=== PATIENT | male | born 1980 | race Caucasian/White ===

== ENCOUNTER 2018-01-25 20:08 | Inpatient (IN) | payer SELFPAY ==
[2018-01-25 20:45] LABS: #Basophils 0.1 thou/uL (0.0-0.2); #Eosinphils 0.1 thou/uL (0.0-0.7); #Lymphocytes 2.8 thou/uL (1.20-3.40); #Monocytes 1.3 thou/uL (0.11-0.59); #Neutrophils 6.6 thou/uL (1.40-6.50); %Basophils 0.8 % (0.0-1.0); %Eosinophils 0.8 % (0.0-10.0); %Lymphocytes 25.8 % (21.0-51.0); %Monocytes 12.2 % (0.0-10.0); %Neutrophils 60.3 % (42.0-75.0); Hemoglobin 13.4 g/dL (14.0-18.0); Mean Corpuscular HGB CONC 35.1 g/dL (32.0-36.0); Mean Corpuscular Volume 93.9 fL (78.0-98.0); Mean Platelet Volume 7.9 fL (7.4-10.4); Platelet Count 337 thou/uL (130-400); RBC Distribution Width 11.6 % (11.5-14.5); Red Blood Cell (RBC) Count 4.07 mill/uL (4.70-6.10); White Blood Cell (WBC) Count 10.9 thou/uL (4.8-10.8)
[2018-01-25 20:51] LABS: Base Excess-Venous -1.1 mmol/L (0 (+/- 2.5)); Bicarbonate (HCO3v) 24.4 mmol/L (1.0-85.0); CO2 Tension (PvCO2) 43.1 mmHg (41.0-51.0); Calcium, Ionized 1.15 mmol/L (1.12-1.32); Hemoglobin - Calc 13.3 g/dL (12.0-18.0); O2 Tension (PvO2) 23.5 mmHg (35.0-45.0); Potassium 3.6 mmol/L (3.4-4.7); T. Carbon Dioxide 25.8 mmol/L (1.0-85.0); pH (Venous) 7.362 (7.35-7.45)
[2018-01-25 21:06] LABS: ALT (SGPT) 18 U/L (8-55); AST (SGOT) 13 U/L (5-34); Albumin 3.8 g/dL (3.5-5.0); Alkaline Phosphatase 142 U/L (40-150); Anion Gap 17 mmol/L (10-20); BUN (Urea Nitrogen) 11 mg/dL (8.9-20.6); Bilirubin, Total 0.4 mg/dL (0.2-1.2); Calc. Creatinine Clearance 0 mL/min (70-130); Calcium 8.5 mg/dL (7.8-10.44); Carbon Dioxide 19 mmol/L (22-29); Chloride 105 mmol/L (98-107); Estimated GFR-MDRD Greater than 90; Globulin 2.4 g/dL (2.4-3.5); Glucose 189 mg/dL (70-105); Potassium 3.8 mmol/L (3.5-5.1); Protein, Total 6.2 g/dL (6.0-8.3); Sodium 137 mmol/L (136-145)
[2018-01-25] MEDS ORDERED: Morphine 4 MG/ML VIAL ONE (21:25)
[2018-01-25] MEDS ORDERED: Acetaminophen 325 MG TAB PO PRN (23:03)
[2018-01-25] MEDS ORDERED: Ondansetron ODT 4 MG TAB SL PRN (23:03)
[2018-01-25] MEDS ORDERED: Ondansetron PF 4 MG/2 ML Vial IVP PRN (23:03)
[2018-01-25] MEDS ORDERED: NPH, Human Insulin Isophane 300 UNIT/3 ML VIAL SC SCH (23:15)
[2018-01-25] MEDS ORDERED: Dextrose 5% in Water 1,000 ML IV PRN (23:55)
[2018-01-25] MEDS ORDERED: Dextrose 50% Abboject 50 ML SYRINGE SLOW IVP PRN (23:55)
[2018-01-26] MEDS: Clindamycin/D5W 900 MG in Premix Bag 1 BAG IVPB SCH ×4 (00:01→20:49)
[2018-01-26] MEDS: Sodium Chloride 0.9% 1,000 ML IV SCH ×2 (00:02→05:08)
[2018-01-26 00:25] VITALS: BMI 23.8
[2018-01-26] MEDS ORDERED: traMADol HCl 50 MG TAB PO SCH (00:30)
[2018-01-26] MEDS: Morphine 2 MG/ML SYRINGE SLOW IVP PRN ×7 (00:42→20:52)
[2018-01-26] MEDS: HumaLOG 300 UNITS/3 ML VIAL SC PRN (04:45)
[2018-01-26] MEDS: traMADol HCl 50 MG TAB PO SCH ×4 (05:09→23:22)
[2018-01-26] MEDS ORDERED: Acetaminophen 500 MG TAB PO PRN (11:16)
[2018-01-26] MEDS ORDERED: Zolpidem Tartrate 5 MG TAB PO PRN (11:16)
[2018-01-26] MEDS ORDERED: Cepastat Lozenges 1 LOZ PO PRN (11:16)
[2018-01-26] MEDS ORDERED: Ondansetron PF 4 MG/2 ML Vial IVP PRN (11:16)
[2018-01-26] MEDS ORDERED: Bisacodyl 5 MG TAB PO PRN (11:16)
[2018-01-26] MEDS ORDERED: Ondansetron ODT 4 MG TAB PO PRN (11:16)
[2018-01-26] MEDS ORDERED: hydrALAZINE 20 MG/ML VIAL SLOW IVP PRN (11:16)
[2018-01-26] MEDS ORDERED: Ibuprofen 200 MG TAB PO PRN (11:16)
[2018-01-26] MEDS ORDERED: Sodium Chloride 0.65% Nasal 44 ML BOT EA NARE PRN (11:16)
[2018-01-26] MEDS ORDERED: Senokot S 8.6-50 MG TAB PO PRN (11:16)
[2018-01-26] MEDS ORDERED: Artificial Tears 18 DROP/0.9 ML EA EYE PRN (11:16)
[2018-01-26] MEDS ORDERED: Eucerin (Mineral Oil/Petrolatum,White) 30 gm Jar TOP PRN (11:16)
[2018-01-26] MEDS ORDERED: Diabetic Tussin 200 MG/10 ML UDCUP PO PRN (11:16)
[2018-01-26] MEDS ORDERED: Loratadine 10 MG TAB PO PRN (11:16)
[2018-01-26] MEDS ORDERED: Loperamide HCl 2 MG CAP PO PRN (11:16)
[2018-01-26] MEDS ORDERED: HumaLOG 300 UNITS/3 ML VIAL SC PRN (11:17)
[2018-01-26] MEDS: HYDROcodone/Acetaminophen 5/325 mg Tablet PO PRN ×2 (11:45→19:47)
[2018-01-26] MEDS ORDERED: Ketorolac Tromethamine 30 MG/ML VIAL IVP PRN (13:04)
--- NOTE | 2018-01-26 13:32 | HP ---
PRIMARY CARE PHYSICIAN: City call admission. REASON FOR ADMISSION: Transfer from [facility] for right-sided facial cellulitis a nd hyperglycemia. HISTORY OF PRESENT ILLNESS: A 37-year-old male who has underlying history of diabetes who presented to emergency room for swelling over the right side of face for the last 3 days. The patient reports that initially he was thinking sinus problem as he was having nasal discharge and he was feeling fore ign body sensation in his nose, but subsequently the patient's swelling on the right side of face had gotten worse. It was getting more erythematous, tender and that is why he decided to go to local em ergency room at [place]. At [facility] Emergency Room, the patient was hemodynamically stable, but he had mild hyperg lycemia associated with mild DKA. He was given IV fluid, insulin drip and he had routine blood test done, which was also consistent with mild DKA. The patient was transferred to our hospital for highe r level of care, before coming to the hospital the patient had CT face with contrast which showed rig ht cheek and periorbital soft tissue cellulitis with infected right mandibular third molar with peria pical abscess. The patient was started on clindamycin at [facility] which was cont inued in our emergency room. When he was transferred to our emergency room, insulin drip was discontinued as DKA was resolved. Hurley bsequently, he was admitted to medical floor. I saw this patient this morning and the patient was feeling a little bit better. He still has swelli ng on his face. The patient reports that whenever he tried to sleep on the right side of the face, h is swelling gets worse. He feels throbbing sensation. He does report that he has poor dentition, bu t he has not seen any dentist in the past. The patient reports that he is taking his insulin as pres cribed. Currently, his blood sugar is out of control, but after giving him insulin, his blood sugars started improving. His WBC count was elevated at [facility] [facility] and currently has improv ement. He denies any UTI symptoms. He denies any constipation, diarrhea, melena, hematochezia. He denies a ny similar problem in the past. PAST MEDICAL HISTORY: Diabetes type 1 on insulin, history of contusion and laceration. PAST SURGICAL HISTORY: Reviewed and negative. PAST PSYCHIATRIC HISTORY: Reviewed and negative. SOCIAL HISTORY: The patient is smoking about 1 pack per day. He denies any other illicit drug abuse , but he drinks alcohol socially. He also chews tobacco. FAMILY HISTORY: No family history of coronary artery disease, stroke or cancer. ALLERGIES: PENICILLIN. CURRENT HOME MEDICATIONS: Humalog 8 units subcu b.i.d., Humulin N 28 units subcu daily and 24 units subcu at bedtime. EMERGENCY ROOM COURSE: The patient was given IV fluid as well as clindamycin and insulin drip at [facility]. The patient was given morphine 4 mg in our emergency room as well as IV f luid. REVIEW OF SYSTEMS: The following complete review of systems was negative, unless otherwise mentioned in the HPI or below: Constitutional: Weight loss or gain, abil ity to conduct usual activities. Skin: Rash, itching. Eyes: Double vision, pain. ENT/Mouth: Nos e bleeding, neck stiffness, pain, tenderness. Cardiovascular: Palpitations, dyspnea on exertion, or thopnea. Respiratory: Shortness of breath, wheezing, cough, hemoptysis, fever or night sweats. Gas trointestinal: Poor appetite, abdominal pain, heartburn, nausea, vomiting, constipation, or diarrhea . Genitourinary: Urgency, frequency, dysuria, nocturia. Musculoskeletal: Pain, swelling. Neurolo gic/Psychiatric: Anxiety, depression. Allergy/Immunologic: Skin rash, bleeding tendency. Please see my HPI for pertinent positive and negative. All other review of systems reviewed and nega tive except as mentioned in the HPI. PHYSICAL EXAMINATION: VITAL SIGNS: Currently, blood pressure 152/91, pulse 86, respiratory rate 16, temperature 98.8, satu ration 99% on room air, weight 73.03 kilograms. GENERAL: The patient is currently alert, awake, no obvious acute distress. HEENT: Normocephalic, atraumatic. Eyes: Pupils round, reactive to light. Extraocular muscle intac t. ENT: Oropharynx within normal limits. Moist mucous membranes, no oral lesion. No pharyngeal erythe ma, no exudate. Face, right-sided face is swollen, tender, and erythematous. NECK: Supple, no JVD, no meningeal signs of irritation. LUNGS: Clear to auscultation without any rhonchi or rales. CARDIAC: S1, S2 regular without any murmur. ABDOMEN: Soft and bowel sounds present, nontender, nondistended. No organomegaly, no mass, no supra pubic tenderness. BACK: Unremarkable, no CVA tenderness. EXTREMITIES: Upper extremity passive movement of all joints are normal. Lower extremities: No abdias a. Good distal pulsation. SKIN: No skin rash other than facial cellulitis. PSYCHIATRIC: Normal affect. NEUROLOGIC: Nonfocal examination. The patient moves all 4 limbs. Plantar bilateral flexor. SIGNIFICANT LABORATORY DATA: CT face with contrast showed right cheek and right periorbital soft tis sues cellulitis, infected right mandibular third molar with periapical abscess. There is also extens david disease of the left mandibular third, second and first molar with a periapical lucency consistent with fatty or dental disease, likely abscess formation. CBC: WBC 12.5, hemoglobin 15.1, platelet 3 33. Sodium 133, potassium 4.1, chloride 95, carbon dioxide 15, anion gap 27, glucose 463, BUN 19, cr eatinine 1.2, calcium 8.8, albumin 4.4, alkaline phosphatase 178, AST 23, ALT 27. Beta hydroxybutyra te 9.18. Venous pH 7.26. Currently, hemoglobin 13.4, WBC 10.9, platelet 337. Beta hydroxybutyrate 2.0, creatinine 0.86. LFT normal. VBG normal. ASSESSMENT AND PLAN: 1. Mild diabetic ketoacidosis, resolved with the insulin therapy and IV fluid. We have restarted hi s home medication including Humulin N 28 units subcu daily and 24 units at bedtime along with insulin as per sliding scale per protocol. Diabetic diet will be given. We will repeat labs tomorrow along with ketones, magnesium and phosphorus. 2. Right-sided facial cellulitis with periodontal disease with abscess. Oral surgeon will be consul hai. Clindamycin 900 mg IV q.8 hours., Florastor 250 mg p.o. daily. Pain control with morphine p.r. n. basis, Toradol 15 mg IV q.6 hourly p.r.n. for pain. 3. Diabetes type 1, on insulin. We will check hemoglobin A1c. We are going to adjust insulin thera py while in hospital. 4. Deep venous thrombosis prophylaxis. Lovenox 40 mg subcu daily. 5. Gastrointestinal prophylaxis, Pepcid 20 mg p.o. b.i.d. 6. Code status: The patient is FULL CODE. The patient does not have any surrogate decision maker. Disposition plan based on clinical course. We are expecting the patient's stay in hospital more than 2 midnights. Plan of care discussed with the patient in detail.
[2018-01-26] MEDS ORDERED: Lidocaine 1% w/Epinephrine 1:100K 20 ML VIAL ONE (17:52)
[2018-01-26] MEDS ORDERED: NPH, Human Insulin Isophane 300 UNIT/3 ML VIAL SC SCH (21:00)
[2018-01-27] MEDS: traMADol HCl 50 MG TAB PO SCH ×4 (00:52→17:44)
--- NOTE | 2018-01-27 00:53 | CON ---
DATE OF CONSULTATION: 01/26/2018 HISTORY OF PRESENT ILLNESS: This is a 37-year-old male with approximately 3- day history of worsening facial swelling. The patient presented to [facility], where a CT of the face was performed revealing right facial swelling and questionable dental abscess. The patient was also found to be in DKA. He was transferred to [facility] for further evaluation and care. Oral Surgery was consulted for concerns for the facial cellulitis and possible odontogenic source. PAST MEDICAL HISTORY: Type 1 diabetes. PAST SURGICAL HISTORY: None. ALLERGIES: PENICILLIN. SOCIAL HISTORY: A 1-pack per day smoker. REVIEW OF SYSTEMS: The patient reports generalized right facial tenderness to palpation. No intraoral pain, tenderness when chewing. Teeth have been asymptomatic over the past couple of weeks, reports no difficulty swallowing or speaking. PHYSICAL EXAMINATION: VSS AF GENERAL: Awake, alert, oriented x4, no acute distress. The patient sitting in bed watching TV. HEENT: Pupils equal, round and reactive to light. Extraocular movements are intact. Nares patent bilaterally. No epistaxis. Patent airflow in bilateral nares. Ears within normal limits. Slight facial edema overlying the right side of the patient's upper lip and right facial infraorbital region, mildly tender to palpation. No erythema appreciated. The patient's mandibular range of motion is within normal limits. Tongue full range of motion. Floor of mouth is soft. Patient has generalized poor dentition with multiple retained roots of nonrestorable teeth. There is very mild maxillary vestibular swelling and tenderness to palpation with fluctuance overlying the right maxillary incisors. No spontaneous drainage or purulence is present. IMAGING: CT of the face reveals a small periapical radiolucency at the apex of the root of tooth #8 with a very small fluid collection adjacent to the alveolus of teeth #7 and #8, less than 1 cm in size. ASSESSMENT/PLAN: This is a 37-year-old male with diabetic ketoacidosis with acute odontogenic abscess involving the maxillary incisors on the patient's right side. I discussed the need for root canals or extractions to remove the source of the infection. The patient is not interested in extraction of teeth for aesthetic concerns. Recommend simple incision and drainage at bedside to remove small amount of purulence from the maxillary vestibule. Patient agrees with plan. From the oral surgery standpoint, the patient can be discharged when he is medically ready. The odontogenic abscess is not significant enough to require inpatient therapy. Recommend clindamycin 300 mg p.o. q.6 h. x1 week after discharge. Peridex mouth rinse 15 mL swish and spit b.i.d. x1 week after discharge. The patient can follow up in the oral surgery clinic 1 week after discharge, Call [phone] to schedule an appointment or with questions or concerns or worrisome symptoms. PROCEDURE PERFORMED: 3cc of 1% Lidocaine with 1/100 epi adminstered as a local infiltration in the right, anterior, maxillary vestibule. 15 blade was used for a 1 cm horizontal incision in the depth of the vestibule apical to #7. Copious purulence was expressed from the wound. Irrigation of the wound was performed with normal saline. [facility]
[2018-01-27] MEDS: Clindamycin/D5W 900 MG in Premix Bag 1 BAG IVPB SCH (05:49)
[2018-01-27 06:22] LABS: #Basophils 0.1 thou/uL (0.0-0.2); #Lymphocytes 1.2 thou/uL (1.20-3.40); #Monocytes 0.9 thou/uL (0.11-0.59); #Neutrophils 10.7 thou/uL (1.40-6.50); %Basophils 0.4 % (0.0-1.0); %Eosinophils 0.4 % (0.0-10.0); %Lymphocytes 9.6 % (21.0-51.0); %Neutrophils 82.7 % (42.0-75.0); Hemoglobin 12.4 g/dL (14.0-18.0); Mean Corpuscular HGB CONC 34.2 g/dL (32.0-36.0); Mean Corpuscular Hemoglobin 32.3 pg (27.0-31.0); Mean Corpuscular Volume 94.4 fL (78.0-98.0); Mean Platelet Volume 8.6 fL (7.4-10.4); Platelet Count 264 thou/uL (130-400); RBC Distribution Width 11.7 % (11.5-14.5); Red Blood Cell (RBC) Count 3.84 mill/uL (4.70-6.10); White Blood Cell (WBC) Count 12.9 thou/uL (4.8-10.8)
[2018-01-27 06:27] LABS: Phosphorus 2.7 mg/dL (2.3-4.7)
[2018-01-27 06:29] LABS: ALT (SGPT) 25 U/L (8-55); AST (SGOT) 44 U/L (5-34); Albumin 3.5 g/dL (3.5-5.0); Alkaline Phosphatase 131 U/L (40-150); Anion Gap 11 mmol/L (10-20); BUN (Urea Nitrogen) 6 mg/dL (8.9-20.6); Bilirubin, Total 0.4 mg/dL (0.2-1.2); CRP (Inflammatory) 6.85 mg/dL (= or < 0.5); Calc. Creatinine Clearance 149 mL/min (70-130); Calcium 8.8 mg/dL (7.8-10.44); Carbon Dioxide 26 mmol/L (22-29); Chloride 102 mmol/L (98-107); Estimated GFR-MDRD Greater than 90; Globulin 2.3 g/dL (2.4-3.5); Magnesium 1.5 mg/dL (1.6-2.6); Potassium 3.3 mmol/L (3.5-5.1); Protein, Total 5.8 g/dL (6.0-8.3); Sodium 136 mmol/L (136-145)
[2018-01-27 06:33] LABS: Glucose 31 mg/dL (70-105)
[2018-01-27] MEDS ORDERED: Potassium Chloride 20 MEQ TAB PO SCH (08:00)
[2018-01-27] MEDS ORDERED: Magnesium Sulfate 3 GM in Sodium Chloride 0.9% 100 ML IVPB SCH (08:15)
[2018-01-27] MEDS: Lisinopril 5 MG TAB PO SCH (08:23)
[2018-01-27] MEDS: Saccharomyces boulardii 250 MG CAP PO SCH (08:23)
[2018-01-27] MEDS: NPH, Human Insulin Isophane 300 UNIT/3 ML VIAL SC SCH (08:25)
[2018-01-27] MEDS ORDERED: NPH, Human Insulin Isophane 300 UNIT/3 ML VIAL SC SCH ×2 (09:00→21:00)
[2018-01-27] MEDS: HYDROcodone/Acetaminophen 5/325 mg Tablet PO PRN ×2 (09:27→20:29)
[2018-01-27] MEDS: HumaLOG 300 UNITS/3 ML VIAL SC PRN ×2 (11:13→20:30)
[2018-01-27] MEDS ORDERED: Clindamycin 150 MG CAP PO SCH (12:30)
--- NOTE | 2018-01-27 13:03 | PDOC.PN ---
- Subjective Encounter Start Date: 01/27/18 Encounter Start Time: 08:15 -: old records requested/rev Patient seen and examined. No new complaints. No overnight events pt has some improvement in fascial cellulitis - Objective MAR Reviewed: Yes Vital Signs & Weight: Vital Signs (12 hours) Temp Pulse Resp BP BP Pulse Ox 01/27/18 08:23 88 122/67 01/27/18 07:37 98.3 F 18 122/67 96 Weight Weight 161 lb I&O: 01/26/18 01/27/18 01/28/18 06:59 06:59 06:59 Intake Total 1810 820 Balance 1810 820 Result Diagrams: 01/27/18 04:32 01/27/18 04:32 Additional Labs: Accuchecks 01/27/18 01/27/18 01/27/18 11:11 06:17 05:47 POC Glucose 263 H 92 55 L* 01/26/18 01/26/18 19:52 16:40 POC Glucose 255 H 187 H Phys Exam - Physical Examination Constitutional: NAD HEENT: PERRLA, moist MMs, sclera anicteric cellulitis right side face Neck: no JVD, supple Respiratory: no wheezing, no rales, no rhonchi Cardiovascular: RRR, no significant murmur, no rub Gastrointestinal: soft, non-tender, no distention, positive bowel sounds Musculoskeletal: no edema, pulses present Neurological: non-focal, normal sensation, moves all 4 limbs Lymphatic: no nodes Psychiatric: normal affect, A&O x 3 Skin: no rash, normal turgor Dx/Plan (1) Cellulitis and abscess of face Code(s): L03.211 - CELLULITIS OF FACE; L02.01 - CUTANEOUS ABSCESS OF FACE Status: Acute (2) Dental abscess Code(s): K04.7 - PERIAPICAL ABSCESS WITHOUT SINUS Status: Acute (3) Hypertension Code(s): I10 - ESSENTIAL (PRIMARY) HYPERTENSION Status: Acute (4) Hypoglycemia due to type 1 diabetes mellitus Code(s): E10.649 - TYPE 1 DIABETES MELLITUS WITH HYPOGLYCEMIA WITHOUT COMA Status: Acute (5) Hypokalemia Code(s): E87.6 - HYPOKALEMIA Status: Acute (6) Hypomagnesemia Code(s): E83.42 - HYPOMAGNESEMIA Status: Acute (7) Diabetes type 1, controlled Code(s): E10.9 - TYPE 1 DIABETES MELLITUS WITHOUT COMPLICATIONS Status: Chronic (8) Tobacco abuse Code(s): Z72.0 - TOBACCO USE Status: Chronic (9) DKA, type 1 Code(s): E10.10 - TYPE 1 DIABETES MELLITUS WITH KETOACIDOSIS WITHOUT COMA Status: Resolved - Plan cont current plan of care, continue antibiotics * continue clindamycin * replace potassum and magnesium * oral surgery recommendation noted * will consider discharge tomorrow * today will adjust diabetic insulin regimen * medication reviewed as below * symptomatic treatment * pain controlled. Review of Systems - Review of Systems ENT: negative: Ear Pain, Ear Discharge, Nose Pain, Nose Discharge, Nose Congestion, Mouth Pain, Mouth Swelling, Throat Pain, Throat Swelling, Other Respiratory: negative: Cough, Dry, Shortness of Breath, Hemoptysis, SOB with Excertion, Pleuritic Pain, Sputum, Wheezing Cardiovascular: negative: chest pain, palpitations, orthopnea, paroxysmal nocturnal dyspnea, edema, light headedness, other Gastrointestinal: negative: Nausea, Vomiting, Abdominal Pain, Diarrhea, Constipation, Melena, Hematochezia, Other Genitourinary: negative: Dysuria, Frequency, Incontinence, Hematuria, Retention , Other Musculoskeletal: negative: Neck Pain, Shoulder Pain, Arm Pain, Back Pain, Hand Pain, Leg Pain, Foot Pain, Other Skin: negative: Rash, Lesions, Ryan, Bruising, Other - Medications/Allergies Allergies/Adverse Reactions: Allergies Allergy/AdvReac Type Severity Reaction Status Date / Time Penicillins Allergy Unknown Verified 01/26/18 00:23 Medications: Current Medications Acetaminophen (Tylenol) 1,000 mg PO Q6H PRN PRN Reason: Mild Pain (1-3) Hydrocodone Bitart/Acetaminophen ([employer] 5/325) 1 tab PO Q4H PRN PRN Reason: Moderate Pain (4-6) Last Admin: 01/27/18 09:27 Dose: 1 tab Artificial Tears (Tears Naturale) 2 drop EA EYE PRN PRN PRN Reason: Dry Eyes Bisacodyl (Dulcolax) 10 mg PO DAILYPRN PRN PRN Reason: Constipation Clindamycin HCl (Cleocin) 300 mg PO Q6HR DANI Clindamycin HCl (Cleocin) 300 mg PO NOW DANI Stop: 01/27/18 14:30 Last Admin: 01/27/18 12:50 Dose: 300 mg Dextrose/Water (Dextrose 50%) 25 gm SLOW IVP PRN PRN PRN Reason: Hypoglycemia Glucagon (Glucagon) 1 mg IM PRN PRN PRN Reason: Hypoglycemia Guaifenesin (Robitussin Sf) 200 mg PO Q4H PRN PRN Reason: Cough Hydralazine HCl (Apresoline) 10 mg SLOW IVP Q4H PRN PRN Reason: SBP > 180 and HR < 70 Dextrose/Water (D5w) 1,000 mls @ 0 mls/hr IV .Q0M PRN PRN Reason: Hypoglycemia Insulin Human Lispro (Humalog) 0 units SC .MILD SLIDING SCALE PRN PRN Reason: Mild Correctional Scale Last Admin: 01/27/18 11:13 Dose: 4 unit Insulin Human Lispro (Humalog) 8 units SC BID-AC PRN PRN Reason: Hyperglycemia Insulin Human NPH (Humulin N) 10 unit SC HS [facility] Insulin Human NPH (Humulin N) 10 unit SC DAILY [facility] Last Admin: 01/27/18 08:25 Dose: 10 unit Ketorolac Tromethamine (Toradol) 15 mg IVP Q6H PRN PRN Reason: Pain Stop: 01/31/18 13:05 Lisinopril (Zestril) 5 mg PO DAILY [facility] Last Admin: 01/27/18 08:23 Dose: 5 mg Loperamide HCl (Imodium) 2 mg PO PRN PRN PRN Reason: Diarrhea/Loose Stools Loratadine (Claritin) 10 mg PO DAILYPRN PRN PRN Reason: Sinus Symptoms Mineral Oil/White Petrolatum (Eucerin Cream) 0 gm TOP BIDPRN PRN PRN Reason: Dry Skin Morphine Sulfate (Morphine) 2 mg SLOW IVP Q2H PRN PRN Reason: Severe Pain (7-10) Last Admin: 01/26/18 20:52 Dose: 2 mg Ondansetron HCl (Zofran Odt) 4 mg PO Q6H PRN PRN Reason: Nausea/Vomiting Ondansetron HCl (Zofran) 4 mg IVP Q6H PRN PRN Reason: Nausea/Vomiting Saccharomyces Boulardii (Florastor) 250 mg PO DAILY [facility] Last Admin: 01/27/18 08:23 Dose: 250 mg Senna/Docusate Sodium (Senokot S) 2 tab PO BID PRN PRN Reason: Constipation Sodium Chloride (Flush - Normal Saline) 10 ml IVF PRN PRN PRN Reason: Saline Flush Sodium Chloride ([place] Nasal [place] 0.65%) 0 ml EA NARE QIDPRN PRN PRN Reason: Nasal Congestion Throat Lozenges (Cepastat Lozenges) 1 dionna PO Q2H PRN PRN Reason: Sore Throat Tramadol HCl (Ultram) 50 mg PO Q6HR DANI Last Admin: 01/27/18 11:38 Dose: 50 mg Zolpidem Tartrate (Ambien) 5 mg PO HSPRN PRN PRN Reason: Insomnia
[2018-01-27] MEDS: Clindamycin 150 MG CAP PO SCH (17:45)
[2018-01-28] MEDS: traMADol HCl 50 MG TAB PO SCH ×3 (00:09→11:05)
[2018-01-28] MEDS: Clindamycin 150 MG CAP PO SCH ×3 (00:09→11:05)
[2018-01-28 05:03] LABS: #Basophils 0.1 thou/uL (0.0-0.2); #Eosinphils 0.1 thou/uL (0.0-0.7); #Lymphocytes 1.5 thou/uL (1.20-3.40); #Monocytes 0.6 thou/uL (0.11-0.59); #Neutrophils 3.3 thou/uL (1.40-6.50); %Eosinophils 1.9 % (0.0-10.0); %Lymphocytes 26.9 % (21.0-51.0); %Monocytes 10.7 % (0.0-10.0); %Neutrophils 59.5 % (42.0-75.0); Hemoglobin 11.7 g/dL (14.0-18.0); Mean Corpuscular HGB CONC 34.2 g/dL (32.0-36.0); Mean Corpuscular Hemoglobin 32.4 pg (27.0-31.0); Mean Corpuscular Volume 94.7 fL (78.0-98.0); Mean Platelet Volume 8.5 fL (7.4-10.4); Platelet Count 222 thou/uL (130-400); RBC Distribution Width 11.7 % (11.5-14.5); Red Blood Cell (RBC) Count 3.61 mill/uL (4.70-6.10); White Blood Cell (WBC) Count 5.6 thou/uL (4.8-10.8)
[2018-01-28 05:20] LABS: Anion Gap 12 mmol/L (10-20); BUN (Urea Nitrogen) 5 mg/dL (8.9-20.6); Calc. Creatinine Clearance 139 mL/min (70-130); Calcium 8.8 mg/dL (7.8-10.44); Carbon Dioxide 28 mmol/L (22-29); Chloride 100 mmol/L (98-107); Estimated GFR-MDRD Greater than 90; Glucose 229 mg/dL (70-105); Magnesium 1.7 mg/dL (1.6-2.6); Potassium 4.1 mmol/L (3.5-5.1); Sodium 136 mmol/L (136-145)
[2018-01-28] MEDS: HumaLOG 300 UNITS/3 ML VIAL SC PRN (05:44)
[2018-01-28 07:45] VITALS: BP 125/52; TEMP 98.3
[2018-01-28] MEDS: NPH, Human Insulin Isophane 300 UNIT/3 ML VIAL SC SCH (07:56)
[2018-01-28] MEDS: Saccharomyces boulardii 250 MG CAP PO SCH (07:57)
[2018-01-28] MEDS: HYDROcodone/Acetaminophen 5/325 mg Tablet PO PRN (07:57)
[2018-01-28] MEDS: Lisinopril 5 MG TAB PO SCH (07:58)
--- NOTE | 2018-01-29 09:24 | DIS ---
DATE OF ADMISSION: 01/25/2018 DATE OF DISCHARGE: 01/28/2018 DISCHARGE DIAGNOSES: 1. Right maxillary periodontal abscess. 2. Diabetic ketoacidosis. 3. Facial cellulitis. 4. Diabetes mellitus, type 1. 5. Hypertension. 6. Hypokalemia. 7. Hypomagnesemia. 8. Tobacco abuse disorder. HISTORY: This patient is a 37-year-old male, who was transferred to this facility from [facility]. The patient initially presented there with right facial swelling and pain. He was initially seen in the ER at [facility] where he had findings based on the CT scan of right periodontal abscess and facial cellulitis and also had findings consistent with DKA. The patient was started on IV fluids, IV clindamycin, and an insulin drip and was transferred to this facility. HOSPITAL COURSE: Once the patient arrived to this facility, he was improving from the DKA and was able to go up with the insulin drip rapidly. He was started on long-acting and sliding scale insulins. He was continued on IV clindamycin and was seen in consultation by Dr. Savage Uribe. He performed an incision and drainage of the anterior right maxillary periodontal abscess. He felt that the patient could safely be discharged to home. The patient had substantial improvements with the facial cellulitis after the incision and drainage. He had tooth extraction recommended by the oral surgeon; however, the patient did not initially wish to pursue that for esthetic reasons. Once the patient's blood sugars were adequately controlled and his infection improving, and his pain resolving, he was felt to be stable for discharge to home. DISPOSITION: The patient is discharged to home. ACTIVITIES: As tolerated. DIET: He will be on diabetic diet. DISCHARGE MEDICATIONS: He will be on; 1. Tylenol No. 3 one p.o. q.4 hours p.r.n. with a quantity of #10 given. 2. He will be on clindamycin 300 mg q.i.d. 3. He was recommended to take Florastor or alternative probiotic. 4. He will continue with his usual home insulin regimen of Humulin N 28 units in the morning, 24 units in the evening, and 8 units b.i.d. with meals. PHYSICAL EXAMINATION: VITAL SIGNS: On the day of discharge, temperature is 98.3, pulse 86, respirations 16, O2 saturation 94% on room air, and blood pressure 125/52. GENERAL: He was awake, alert, oriented, pleasant, and cooperative. HEENT: the incision and drainage site at the right anterior maxillary gum area appeared to be healing well. He had no drainage and minimal tenderness. NECK: Supple and symmetric without lymphadenopathy. HEART: Regular rate and rhythm. LUNGS: Clear bilaterally. ABDOMEN: Benign. FOLLOWUP: The patient is to follow up with Dr. Walter Church in [place], his PCP. He is also encouraged to follow up with an oral surgeon. He can follow up with Dr. Savage Uribe in 7 days or he can follow up with the oral surgeon in [place] as his preference. The patient can return to the emergency department in [place] or here should he have any further problems prior to the time of his followup appointment. Job ID: [id number]
== END 2018-01-28 13:30 | disposition home or self-care (01) | DRG 137 ==
LOC: ERS 20:08 → T4-A 20:50
PROVIDERS: ADMIT Hospitalist; ATTEND Hospitalist
PROC: 0W930ZZ Drainage of Oral Cavity and Throat, Open Approach (ICD-10-PCS; principal; 2018-01-26)
DX: K04.7 Periapical abscess without sinus (principal); E10.10 Type 1 diabetes mellitus with ketoacidosis without coma; L03.211 Cellulitis of face; I10 Essential (primary) hypertension; E87.6 Hypokalemia; E83.42 Hypomagnesemia; Z72.0 Tobacco use; Z79.4 Long term (current) use of insulin
CPT/HCPCS: 36415; 36416; 80048; 80053; 82010; 82330; 82803; 83036; 83735; 84100; 85025; 86140; 96361; 96374; J1815; J2001; J2270; J3475; J3490; J7050